=== PATIENT | female | born 1960 | race Caucasian/White ===

== ENCOUNTER 2016-06-08 10:04 | Outpatient (CLI) ==
[2015-02-25 17:59] VITALS: BMI 27.4
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
== END 2016-06-08 10:05 | disposition home or self-care (01) ==
LOC: RAD 10:04
PROVIDERS: ATTEND Family Medicine
DX: M25.511 Pain in right shoulder (principal)

== ENCOUNTER 2016-07-19 12:01 | Outpatient (CLI) ==
[2015-02-25 17:59] VITALS: BMI 27.4
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
== END 2016-07-19 12:02 | disposition home or self-care (01) ==
LOC: RAD 12:01
PROVIDERS: ATTEND Family Medicine
DX: M54.2 Cervicalgia (principal)

== ENCOUNTER 2016-10-10 19:45 | Emergency (ER) ==
[2016-10-10] MEDS ORDERED: TETANUS DIPHTHERIA TOXOIDS IM ONE (19:48)
[2016-10-10 20:00] VITALS: BP 170/78; TEMP 98.6; BMI 30.9
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
[2016-10-10] MEDS ORDERED: NORCO 7.5-325 PO STA (20:52)
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
== END 2016-10-10 21:00 | disposition home or self-care (01) ==
LOC: ED 19:45
DX: S42.025A Nondisplaced fracture of shaft of left clavicle, initial encounter for closed fracture (principal); S22.42XA Multiple fractures of ribs, left side, initial encounter for closed fracture; F17.210 Nicotine dependence, cigarettes, uncomplicated; M79.1 Myalgia; M25.50 Pain in unspecified joint; W19.XXXA Unspecified fall, initial encounter; W22.8XXA Striking against or struck by other objects, initial encounter
CPT/HCPCS: 90471; 99283

== ENCOUNTER 2017-02-03 09:44 | Outpatient (CLI) ==
[2017-02-03 10:27] LABS: ALBUMIN 3.3 g/dL (3.4-5.0); ALBUMIN/GLOBULIN RATIO 0.92; ANION GAP 13.1; BILIRUBIN,TOTAL 0.37 mg/dL (0.00-1.20); BUN/CREATININE RATIO 17.97; CALCIUM 9.4 mg/dL (8.2-10.2); CREATININE 0.89 mg/dL (0.60-1.30); POTASSIUM 4.1 mmol/L (3.5-5.10); TOTAL PROTEIN 6.9 g/dL (6.4-8.2)
== END 2017-02-03 09:45 | disposition home or self-care (01) ==
LOC: LAB 09:44
PROVIDERS: ATTEND Family Medicine
DX: E11.9 Type 2 diabetes mellitus without complications (principal)
CPT/HCPCS: 36415; 80053

== ENCOUNTER 2017-02-07 08:03 | Outpatient (CLI) ==
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
== END 2017-02-07 08:04 | disposition home or self-care (01) ==
LOC: RAD 08:03
PROVIDERS: ATTEND Family Medicine
DX: R51 Headache (principal)

== ENCOUNTER 2017-02-25 08:08 | Outpatient (CLI) ==
--- NOTE | 2017-02-25 17:25 | MRI ---
EXAM: [facility] MR angiogram without contrast. HISTORY: Headache. COMPARISON: Head CT 10/10/2016 and brain MRI 02/07/2017. TECHNIQUE: 3-D [id number] MR angiography was acquired through the [facility] without contr ast. FINDINGS: There are no flow-limiting stenoses in the right internal carotid artery from the distal c ervical segment to the intracranial bifurcation which is best shown on series 4. The right anterior and middle cerebral arteries are unremarkable. The anterior communicating artery is absent. There i s a dominant right posterior communicating artery. The left internal carotid artery has no flow-limiting stenoses from the distal cervical segment to th e intracranial bifurcation. The left anterior and middle cerebral arteries are unremarkable. The le ft anterior cerebral artery is mildly smaller than the right. There is a dominant left posterior com municating artery. Both vertebral arteries are small in the proximal posterior fossa and are not well seen from the cran iocervical junction to the mid posterior fossa. The [id number] vertebral arteries are without fl ow-limiting stenoses to the vertebral basilar junction. The basilar artery is mildly small as expect ed given the dominant posterior communicating arteries. The superior cerebellar arteries are unremar kable. The left posterior cerebral P1 segment shows a probable mild stenosis at the junction with th e left posterior communicating artery and the junction is not well seen. There is mild irregular mima rowing in the proximal and mid left posterior cerebral artery P2 segment and pruning distally with po or visualization of the medial and lateral branches. There is a partially visualized right posterior cerebral artery P1 segment that has a probable high-g rade stenosis just beyond its origin and there is a probable high-grade stenosis at the junction of t he P1 segment with the posterior communicating artery. The right P2 segment is of normal caliber to the bifurcation. There is mild irregular narrowing of the proximal lateral branch with pruning dista lly of both the medial and lateral branches. IMPRESSION: 1. No hemodynamically significant stenoses, aneurysms or vascular malformations are present in the m ajor arteries of the [facility] [place]. 2. Incomplete visualization of proximal vertebral arteries in the proximal posterior fossa. If sign ificant posterior fossa symptoms are present, CTA may be considered.
== END 2017-02-25 08:09 | disposition home or self-care (01) ==
LOC: RAD 08:08
PROVIDERS: ATTEND Family Medicine
DX: R51 Headache (principal)

== ENCOUNTER 2017-04-16 08:56 | Outpatient (CLI) | END 2017-04-16 08:57 | disposition home or self-care (01) | LOC: LAB 08:56 | PROVIDERS: ATTEND Psychiatry & Neurology Neurology | DX: R51 Headache (principal); R20.2 Paresthesia of skin; M54.2 Cervicalgia | CPT/HCPCS: 36415; 82607; 84165; 84443; 85651; 86038 ==

== ENCOUNTER 2017-10-12 11:37 | Outpatient (CLI) ==
--- NOTE | 2017-10-12 16:55 | DI ---
EXAM: Chest two views HISTORY: Shortness of air COMPARISON: 01/08/2014 TECHNIQUE: Two views of the chest were performed FINDINGS: Chronic opacity left lung apex appears unchanged. There is no pleural effusion or pneumot horax. The heart is the in size. The mediastinal contour is unchanged, noting atherosclerosis. The re are no acute abnormalities of the bones. Old left-sided rib fractures. Status post ORIF left clav icle IMPRESSION: Chronic opacity left lung apex appears unchanged. A cavitary lesion was demonstrated on prior chest CT
== END 2017-10-12 11:38 | disposition home or self-care (01) ==
LOC: RAD 11:37
PROVIDERS: ATTEND Family Medicine
DX: R06.02 Shortness of breath (principal)